=== PATIENT | female | born 1965 | race Caucasian/White ===

== ENCOUNTER 2022-03-20 00:01 | Emergency (ER) | payer OTHER ==
[~2022-03-20] VITALS: Ht 157.5 cm; Wt 68.0 kg
[2022-03-20 01:30] VITALS: BP 126/76; PULSE 67; TEMP 97.9
== END 2022-03-20 01:30 | disposition home or self-care (01) ==
LOC: COL.ER 00:01
DX: S80.211A Abrasion, right knee, initial encounter (principal); S80.812A Abrasion, left lower leg, initial encounter; Z28.310 Unvaccinated for COVID-19; W10.9XXA Fall (on) (from) unspecified stairs and steps, initial encounter
CPT/HCPCS: J1885

== ENCOUNTER → 2023-09-10 | Outpatient (CLI) | payer OTHER | LOC: COL.RAD 08:03 | DX: D18.09 Hemangioma of other sites (principal); M51.34 Other intervertebral disc degeneration, thoracic region; R25.1 Tremor, unspecified; R20.2 Paresthesia of skin | CPT/HCPCS: A9575 ==